=== PATIENT | female | born 1990 | race Caucasian/White ===

== ENCOUNTER → 2023-05-10 08:13 | Outpatient (BNVA) | payer OTHER, SELFPAY | PROVIDERS: Family Provider Family Medicine; PCP Nurse Practitioner; Visit Provider Nurse Practitioner Family | DX: R00.2 Palpitations (principal); R53.83 Other fatigue; Z79.899 Other long term (current) drug therapy; Z01.89 Encounter for other specified special examinations; R79.0 Abnormal level of blood mineral | CPT/HCPCS: 80053; 80061; 81003; 83036; 85025 ==

== ENCOUNTER → 2023-05-28 10:52 | Outpatient (BNVA) | payer OTHER, SELFPAY | PROVIDERS: Family Provider Family Medicine; PCP Nurse Practitioner; Visit Provider Nurse Practitioner Family | DX: E87.5 Hyperkalemia (principal) | CPT/HCPCS: 80053 ==